=== PATIENT | female | born 1970 | race Caucasian/White ===

== ENCOUNTER 2019-06-07 14:00 | Outpatient (RCR) | payer MEDICARE ==
[~2019-06-07 14:00] MED LIST: ALEVE 220MG220 MG PO; COLACE50 MG PO; FLORINEF ACETA0.1 MG PO; MICRO-K 1010 MEQ PO; MOBIC15 MG PO; MULTIPLE VITAMI1 CAP PO; NEURONTIN400 MG/CAP PO; PROAIR HFA0.09 MG/AC IH; PROAMATINE 5MG T5 MG PO; PROBIOTIC FORMU1 CAP PO; PYRIDIUM200 M1 PO; REGLAN 10MG10 MG/TAB PO; SYNTHROID0.05 MG/TA PO; TYLENOL 500MG500 MG PO; ZOFRAN 4MG T4 MG/TAB PO; [UNRECOGNIZED DRUG - OTHER] PO
== END 2019-07-27 | disposition still patient (30) ==
LOC: WSC
DX: M25.552 Pain in left hip (principal); M54.17 Radiculopathy, lumbosacral region

== ENCOUNTER → 2020-06-05 | Outpatient (CLI) | payer MEDICARE ==
[~2020-06-05] VITALS: Ht 172.7 cm; Wt 71.8 kg
[~2020-06-05] MED LIST changes: +CRESTOR20 MG PO; +ESTROGEN CREAM; +FLOMAX 0.40.4 MG/CAP PO; +HIPREX PO; +LASIX 20MG TABL20 MG PO; +LYRICA200 MG PO; +NORCO 325 MG-7.1 TAB PO; +TIROSINT75 MC1 PO; +VOLTAREN 75 DR75 MG PO
[2020-06-05 11:50] VITALS: BP 119/78; PULSE 58
[2020-06-05 13:30] VITALS: BP 10/62; PULSE 58
[2020-06-05 13:45] VITALS: BP 111/73; PULSE 58
--- NOTE | 2020-06-05 13:55 | NUR ---
Discharge instructions gone over with pt. Pt reports continued dizziness will continue to monitor. Copy of instructions given to pt. Int in left wrist removed, catheter tip intact and 2x2 and coban to site, pressure per coban.
[2020-06-05 14:00] VITALS: BP 100/68; PULSE 59
== END ==
LOC: COL.RAD 11:29
DX: G95.89 Other specified diseases of spinal cord (principal); M41.85 Other forms of scoliosis, thoracolumbar region; M51.36 Other intervertebral disc degeneration, lumbar region; Z98.1 Arthrodesis status
CPT/HCPCS: J2704; J7120

== ENCOUNTER → 2020-07-23 | Outpatient (CLI) | payer MEDICARE | LOC: MHCPAIN 12:26 | DX: M47.812 Spondylosis without myelopathy or radiculopathy, cervical region (principal); M47.814 Spondylosis without myelopathy or radiculopathy, thoracic region; M47.817 Spondylosis without myelopathy or radiculopathy, lumbosacral region; M53.3 Sacrococcygeal disorders, not elsewhere classified | CPT/HCPCS: G0463 ==

== ENCOUNTER → 2020-08-01 | Outpatient (CLI) | payer MEDICARE | LOC: MHCPAIN 11:14 | DX: M47.817 Spondylosis without myelopathy or radiculopathy, lumbosacral region (principal); M54.5 Low back pain ==

== ENCOUNTER → 2020-08-06 | Outpatient (CLI) | payer MEDICARE | LOC: MHCPAIN 09:05 | DX: M47.816 Spondylosis without myelopathy or radiculopathy, lumbar region (principal); M53.3 Sacrococcygeal disorders, not elsewhere classified; M54.5 Low back pain; M41.25 Other idiopathic scoliosis, thoracolumbar region; G89.29 Other chronic pain | CPT/HCPCS: G0463 ==

== ENCOUNTER → 2020-08-19 | Outpatient (CLI) | payer MEDICARE | LOC: MHCPAIN 13:27 | DX: M47.817 Spondylosis without myelopathy or radiculopathy, lumbosacral region (principal); M54.5 Low back pain ==

== ENCOUNTER → 2020-09-19 | Outpatient (CLI) | payer MEDICARE | LOC: MHCPAIN 07:55 | DX: M47.817 Spondylosis without myelopathy or radiculopathy, lumbosacral region (principal); M54.5 Low back pain; M53.3 Sacrococcygeal disorders, not elsewhere classified | CPT/HCPCS: G0463; J1100; J2250; J3010 ==

== ENCOUNTER → 2020-09-26 | Outpatient (CLI) | payer MEDICARE | LOC: MHCPAIN 07:56 | DX: M47.817 Spondylosis without myelopathy or radiculopathy, lumbosacral region (principal); M54.5 Low back pain | CPT/HCPCS: J1100; J2250; J3010 ==

== ENCOUNTER → 2020-11-26 | Outpatient (CLI) | payer MEDICARE | LOC: MHCPAIN 13:08 | DX: M47.816 Spondylosis without myelopathy or radiculopathy, lumbar region (principal); M54.5 Low back pain; M53.3 Sacrococcygeal disorders, not elsewhere classified; G89.29 Other chronic pain | CPT/HCPCS: G0463 ==

== ENCOUNTER 2021-09-08 05:03 | Day surgery (SDC) | payer MEDICARE ==
[~2021-09-08] VITALS: Ht 172.7 cm; Wt 64.1 kg
--- NOTE | 2021-09-08 05:30 | NUR ---
51 year old female admitted to [facility] bay #8 via walker, gait is weak but steady. Height and weight obtained. Medications and HX reviewed. Procedure verified and consent signed. First and last name + verified with the patient. Physical assessment completed. Vitals obtained and are WNL. The patient denied needing assistance changing, however required assistance putting her non-slip socks on. Warm blanket provided. IV started R hand with 20G. IVF scanned and are infusing without difficulty. IV Pepcid administered. The patient verbalized understanding of the side effects. Call cage is on the bedside table, within reach. is present. Side rails x2.
[2021-09-08] MEDS ORDERED: LEVOXYL0.075 MG PO (05:54)
[2021-09-08 06:19] VITALS: BP 120/74; PULSE 58; TEMP 97.9
[2021-09-08 09:15] VITALS: BP 133/71; PULSE 66; TEMP 98.7
--- NOTE | 2021-09-08 09:15 | NUR ---
Patient arrived from PACU sleepy and drowsy. The patient can answer basic questions, but otherwise sleeps. Vitals obtained and are WNL. is present. Lights dimmed for patient comfort. Side rails x2. Call cage is within reach if needed.
[2021-09-08 09:20] VITALS: BP 127/69; PULSE 67
--- NOTE | 2021-09-08 09:20 | NUR ---
Patient continues to sleep. Call cage remains within reach. vitals obtained.
[2021-09-08 09:35] VITALS: BP 123/65; PULSE 63
--- NOTE | 2021-09-08 09:35 | NUR ---
Vitals obtained. The patient was assisted with sitting in bed. She is oriented, but still drowsy. She is tolerating ice water well; denies nausea. No vomiting. Side rails x1. The patient requested crackers. Call cage is within reach at bedside.
[2021-09-08 09:50] VITALS: BP 119/69; PULSE 81
--- NOTE | 2021-09-08 09:50 | NUR ---
The patient is tolerating her crackers and ice water well. Call cage is within reach. 02 discontinued at this time. The patient was assisted to a bedside commode and was able to successfully urinate via straight cath. The patient states she has to straight cath multiple times/day and brought her own supplies. The patient was then assisted back to bed, where she requested toast to eat before PO pain med administered.
--- NOTE | 2021-09-08 10:20 | NUR ---
The patient was provided toast to eat. was contacted for a new RX order of Narco, instead of the Percocet. The patient states Percocet makes her "very ill with vomiting". New orders recieved. PO pain medication administered. Call cage is within reach.
[2021-09-08 11:10] VITALS: BP 133/71; PULSE 66
--- NOTE | 2021-09-08 11:25 | NUR ---
IV was discontinued. Catheter tip intact. Pressure dressing applied. DC instructions and educational material was reviewed with the patient and her . Both verbalized understanding and denied having any questions or concerns. The patient verbalized understanding her will begin taking ASA 325mg BID for blood clot prevention. She verbalized understanding she needs to eat somthing with this medication. The patient denied needing assistance changing into her personal clothes.
--- NOTE | 2021-09-08 11:35 | NUR ---
The patient was escorted out via wheelchair [facility] by Dianna PALMER and transferred into the care of her , who is present to drive. Her has the DC packet. Follow up appt instructions provided.
== END 2021-09-08 11:35 | disposition home or self-care (01) ==
LOC: SDCO 05:03
DX: M70.62 Trochanteric bursitis, left hip (principal)
CPT/HCPCS: J0690; J1100; J1170; J1885; J2405; J2704; J3010; J7120

== ENCOUNTER → 2021-12-05 | Outpatient (CLI) | payer MEDICARE ==
[~2021-12-05] VITALS: Ht 172.7 cm; Wt 61.9 kg
[~2021-12-05] MED LIST changes: +ESTRACE0.5 MG PO; +FLONASEALLERGY NS; +LEVOXYL0.075 MG PO; +LYRICA 100MG C100 M1 PO; +RT ADVAIR 228 DISKUS IH
[2021-12-05 12:05] VITALS: BP 117/77; PULSE 63; TEMP 97.7
[2021-12-05 13:00] VITALS: BP 124/76; PULSE 65
[2021-12-05 13:10] VITALS: BP 131/81; PULSE 65
[2021-12-05 13:25] VITALS: BP 111/72; PULSE 70
== END ==
LOC: COL.RAD 11:35
DX: M47.26 Other spondylosis with radiculopathy, lumbar region (principal); N83.8 Other noninflammatory disorders of ovary, fallopian tube and broad ligament
CPT/HCPCS: J0330; J2250; J2704